=== PATIENT | female | born 1985 | race Caucasian/White ===

== ENCOUNTER 2017-09-28 16:22 | Emergency (ER) | payer OTHER ==
--- NOTE | 2017-09-28 16:30 | PDOC ---
Rapid Medical Evaluation Chief Complaint: Back Pain Time Seen by Provider: 09/28/17 16:27 Medical Evaluation: Allergies Allergy/AdvReac Type Severity Reaction Status Date / Time No Known Allergies Allergy Verified 09/28/17 16:26 09/28/17 16:27 I have performed a brief in-person evaluation of this patient. The patient presents with a chief complaint of: intermittent vaginal bleeding for 3 weeks with abdominal pain, and vaginal pain. Also reports nausea and dizziness. Denies dysuria, vomiting or diarrhea Pertinent physical exam findings: NAD even and unlabored non tender abdomen I have ordered the following: urine , urinalysis and labs The patient will proceed to the ED for further evaluation
[2017-09-28 16:31] VITALS: BP 129/91; PULSE 90; TEMP 97.9; BMI 38.3
[2017-09-28 17:05] LABS: HCG,QUALITATIVE URINE NEGATIVE
--- NOTE | 2017-09-28 17:05 | PDOC ---
History of Present Illness - General Chief Complaint: Back Pain Stated Complaint: BACK PAIN Time Seen by Provider: 09/28/17 16:27 - History of Present Illness Initial Comments: 09/28/17 17:00 CHIEF COMPLAINT: back pain, suprapubic pain, vaginal bleeding HISTORY OF PRESENT ILLNESS: 31 yo 4F with hx of irregular menstrual cycles presents to ED with low back and suprapubic pain x 2 weeks. Patient reports intermittent vaginal bleeding x 3 weeks and states that she has never had this kind of bleeding before, nor had this kind of pain. She reports the pain in her suprapubic area is a "pinching pain" and the pain in her back is worsened when she lies down. PAST MEDICAL HISTORY: Denies past medical history FAMILY HISTORY: Denies SOCIAL HISTORY: Denies tobacco, alcohol, illicit drug use. SURGICAL HISTORY: Denies ALLERGIES: No known drug allergies REVIEW OF SYSTEMS General/Constitutional: Denies fever or chills. Denies weakness, weight change. HEENT: Denies change in vision. Denies ear pain or discharge. Denies sore throat. Cardiovascular: Denies chest pain or shortness of breath. Respiratory: Denies cough, wheezing, or hemoptysis. Gastrointestinal: Nausea. Denies vomiting, diarrhea or constipation. Denies rectal bleeding. Genitourinary: Vaginal bleeding x 2 weeks. Denies dysuria, frequency, or change in urination. Musculoskeletal: Denies joint or muscle swelling or pain. Denies neck or back pain. Skin and breasts: Denies rash or easy bruising. Neurologic: Denies headache, vertigo, loss of consciousness, or loss of sensation. PHYSICAL EXAM General Appearance: Well-appearing, appropriately dressed. No apparent distress. HEENT: EOMI, PERRLA. No conjunctival pallor. No photophobia, scleral icterus. Respiratory/Chest: Lungs CTAB. Cardiovascular: RRR. S1, S2. Gastrointestinal/Abdominal: Normal bowel sounds. Abdomen soft, non-distended. No tenderness or rebound tenderness. No organomegaly, pulsatile mass, guarding , hernia, hepatomegaly, splenomegaly. Musculoskeletal/Extremities: Normal inspection. FROM of all extremities, normal capillary refill. Pelvis Stable. No CVA tenderness. No tenderness to extremities, pedal edema, swelling, erythema or deformity. Integumentary: Appropriate color, dry, warm. No cyanosis, erythema, jaundice or rash Neurologic: gastroenterologist II-XII intact. Fully oriented, alert. Appropriate mood/affect. Motor strength 5/5. No appreciable EOM palsy, facial droop or sensory deficit. Past History - Past Medical History Allergies/Adverse Reactions: Allergies Allergy/AdvReac Type Severity Reaction Status Date / Time No Known Allergies Allergy Verified 09/28/17 16:26 Home Medications: Ambulatory Orders Ibuprofen [Motrin -] 600 mg PO TID PRN #21 tablet 09/28/17 CVA: No COPD: No DVT: No - Suicide/Smoking/Psychosocial Hx Smoking History: Current every day smoker Number of Cigarettes Smoked Daily: 1 Information on smoking cessation initiated: No Hx Alcohol Use: No Drug/Substance Use Hx: No Substance Use Type: Alcohol *Physical Exam - Vital Signs Last Vital Signs Temp Pulse Resp BP Pulse Ox 97.9 F 90 16 129/91 100 09/28/17 16:26 09/28/17 16:26 09/28/17 16:26 09/28/17 16:26 09/28/17 16:26 ED Treatment Course - RADIOLOGY Radiology Studies Ordered: Category Date Time Status TRANSVAGINAL ULTRASOUND US [US] Stat Ultrasound 09/28/17 16:58 Ordered Medical Decision Making - Medical Decision Making 09/28/17 17:05 31 yo 4F with hx of irregular menstrual cycles presents to ED with low back and suprapubic pain x 2 weeks -Upreg, UA sent in E -TVUS eval for fibroids, irregular uterine bleeding 09/28/17 18:04 Ultrasound negative. *DC/Admit/Observation/Transfer Diagnosis at time of Disposition: Irregular menstrual bleeding - Discharge Dispostion Disposition: HOME Condition at time of disposition: Stable Decision to Admit order: No - Prescriptions Prescriptions: Ibuprofen [Motrin -] 600 mg PO TID PRN #21 tablet PRN Reason: Pain - Referrals Referrals: Darwin Gonzales MD [Staff Physician] - - Patient Instructions Printed Discharge Instructions: DI for Dysmenorrhea Additional Instructions: Please follow up with OBGYN within the next 1-2 weeks for further evaluation and management of your vaginal bleeding. If you develop significant bleeding ( more than one soaked pad an hour), lightheadedness, dizziness, palpitations, shortness of breath, or any new or worsening symptoms, please return to the ER. - Post Discharge Activity
[2017-09-28] MEDS ORDERED: KETOROLAC TROMETHAMINE 60 MG/2 ML VIAL IM ONE (17:31)
[2017-09-28] MEDS ORDERED: KETOROLAC TROMETHAMINE 60 MG/2 ML VIAL ONE (17:33)
[2017-09-28 17:50] LABS: URINE APPEARANCE CLEAR; URINE BILIRUBIN NEGATIVE (<2.0 mg/dL); URINE COLOR YELLOW; URINE GLUCOSE (UA) NEGATIVE (NEGATIVE); URINE KETONE NEGATIVE (NEGATIVE); URINE LEUK ESTERASE NEGATIVE (NEGATIVE); URINE NITRITE NEGATIVE (NEGATIVE); URINE PROTEIN NEGATIVE (NEGATIVE); URINE UROBILINOGEN NEGATIVE mg/dL (0.2-1.0)
[2017-09-28 17:54] LABS: EPI CELLS FEW /HPF (FEW); URINE BACTERIA RARE /hpf (NONE SEEN); URINE MUCUS MANY
== END 2017-09-28 18:11 | disposition home or self-care (01) ==
LOC: JER 16:22
PROC: 3E0233Z Introduction of Anti-inflammatory into Muscle, Percutaneous Approach (ICD-10-PCS; principal; 2017-09-28)
DX: N92.5 Other specified irregular menstruation (principal)
CPT/HCPCS: 76830-TC; 81003; 81015; 84703; 87086; 96372; 99281-25

== ENCOUNTER 2018-11-19 17:21 | Emergency (ER) | payer OTHER ==
[2018-11-19 17:28] VITALS: TEMP 98.5; BMI 38.7
--- NOTE | 2018-11-19 17:28 | PDOC ---
Rapid Medical Evaluation Chief Complaint: Vaginal Bleeding Time Seen by Provider: 11/19/18 17:25 Medical Evaluation: Allergies Allergy/AdvReac Type Severity Reaction Status Date / Time No Known Allergies Allergy Verified 11/19/18 17:25 11/19/18 17:26 Patient c/o: vag bleeding with lower abd cramping at 230pm , unknown gest age, lmp in august Patient on brief exam: vss, mid and rt suprapubic tenderness Patient ordered for: labs, urine, and u/s patient to proceed to the ED Discharge Disposition - Diagnosis Vagina bleeding - Referrals - Patient Instructions - Post Discharge Activity
[2018-11-19 18:00] LABS: BASO % 0.5 % (0-2.0); EOS % 0.6 % (0-4.5); HEMATOCRIT 39.3 % (32.4-45.2); HEMOGLOBIN 12.8 GM/dL (10.7-15.3); LYMPH % 23.9 % (8-40); MCH 26.5 pg (25.7-33.7); MCHC 32.6 g/dl (32.0-36.0); MEAN CELL VOLUME 81.1 fl (80-96); MEAN PLT VOLUME 7.4 fl (7.5-11.1); MONO % 8.1 % (3.8-10.2); NEUT % 66.9 % (42.8-82.8); PLATELET COUNT 330 K/MM3 (134-434); RBC 4.84 M/mm3 (3.60-5.2); RDW 13.8 % (11.6-15.6); WHITE BLOOD COUNT 14.5 K/mm3 (4.0-10.0)
[2018-11-19 18:03] LABS: EPI CELLS 28.3 /HPF (0-5/HPF); HYALINE CASTS 17 /lpf (0-8); PH,URINE 5.5 (5.0-8.0); URINE APPEARANCE CLOUDY; URINE BACTERIA 184.3 /hpf (NEGATIVE); URINE BILIRUBIN NEGATIVE (NEGATIVE); URINE COLOR YELLOW; URINE GLUCOSE (UA) NEGATIVE (NEGATIVE); URINE KETONE TRACE (NEGATIVE); URINE LEUK ESTERASE 1+ (NEGATIVE); URINE NITRITE NEGATIVE (NEGATIVE); URINE PROTEIN TRACE (NEGATIVE); URINE RBC 7 /hpf (0-4); URINE UROBILINOGEN 0.2 mg/dL (0.2-1.0); URINE WBC 11 /hpf (0-5)
[2018-11-19] MEDS ORDERED: ACETAMINOPHEN 325 MG TABLET (FP) PO ONE (18:18)
--- NOTE | 2018-11-19 18:28 | PDOC ---
History of Present Illness - General Chief Complaint: Vaginal Bleeding Stated Complaint: VAGINAL BLEEDING/LOWER AB/PAIN Time Seen by Provider: 11/19/18 17:25 History Source: Patient Exam Limitations: No Limitations Past History - Past Medical History Allergies/Adverse Reactions: Allergies Allergy/AdvReac Type Severity Reaction Status Date / Time No Known Allergies Allergy Verified 11/19/18 17:25 Home Medications: Ambulatory Orders Ibuprofen [Motrin -] 600 mg PO TID PRN #21 tablet 09/28/17 CVA: No COPD: No DVT: No - Suicide/Smoking/Psychosocial Hx Smoking History: Never smoked Number of Cigarettes Smoked Daily: 1 Hx Alcohol Use: No Drug/Substance Use Hx: No Substance Use Type: Alcohol *Physical Exam - Vital Signs Last Vital Signs Temp Pulse Resp BP Pulse Ox 98.5 F 95 H 16 136/70 99 11/19/18 17:21 11/19/18 17:21 11/19/18 17:21 11/19/18 17:21 11/19/18 17:21 - Physical Exam General Appearance: No: Apparent Distress Respiratory/Chest: positive: Lungs Clear, Normal Breath Sounds. negative: Respiratory Distress Cardiovascular: positive: Regular Rhythm, Regular Rate, S1, S2. negative: Murmur Female Pelvic Exam: positive: other (cervical os closed). negative: discharge, adnexal tenderness, vaginal bleeding Gastrointestinal/Abdominal: positive: Tender (mild along RLQ), Soft. negative: Distended, Guarding, Rebound Neurologic: positive: Alert, Normal Mood/Affect ED Treatment Course - LABORATORY CBC & Chemistry Diagram: 11/19/18 17:48 11/19/18 17:48 - ADDITIONAL ORDERS Additional order review: Laboratory Results 11/19/18 17:48 Urine Color Yellow Urine Appearance Cloudy Urine pH 5.5 Ur Specific [place] 1.032 Urine Protein Trace Urine Glucose (UA) Negative Urine Ketones Trace H Urine Blood 3+ H Urine Nitrite Negative Urine Bilirubin Negative Urine Urobilinogen 0.2 Ur Leukocyte Esterase 1+ H Urine WBC (Auto) 11 Urine RBC (Auto) 7 Urine Casts (Auto) 17 U Epithel Cells (Auto) 28.3 Urine Bacteria (Auto) 184.3 11/19/18 17:48 RBC 4.84 MCV 81.1 MCHC 32.6 RDW 13.8 MPV 7.4 L Neutrophils % 66.9 Lymphocytes % 23.9 Monocytes % 8.1 Eosinophils % 0.6 Basophils % 0.5 Medical Decision Making - Medical Decision Making 32 y/o F , LNMP August (unsure of exact date), hx of PCOS, has irregular menstrual cycles, found out she was via home test 2 weeks ago , which was later confirmed at [facility], presents with vaginal bleeding from today. 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 Also with lower abdominal cramping/LBP from yesterday. Denies fever, sob, cp, n/v/d, dysuria. Denies prior abdominal surgeries R/O ectopic; possible spontaneous ; also r/o appendicitis given RLQ pain Plan: Labs, Tylenol, pelvic US, transvaginal US 11/19/18 18:27 Urine repeated as appeared contaminated Repeat urine negative Pelvic US - unable to visualize appendix However, on repeat exam, patient appears comfortable with no further RLQ tenderness noted; unlikely appendicitis TVUS shows IUP at 5 weeks 6 days, no heart tone noted D/W FIELD EVIDENCE TECHNICIAN, Dr. Mendoza - recommends patient f/u with him in 2 weeks for repeat US stable for dc 11/19/18 20:52 *DC/Admit/Observation/Transfer Diagnosis at time of Disposition: Vaginal bleeding during - Discharge Dispostion Disposition: HOME Condition at time of disposition: Stable Decision to Admit order: No - Referrals Referrals: Darwin Gonzales MD [Staff Physician] - 14 days - Patient Instructions Printed Discharge Instructions: DI for Vaginal Bleeding During Additional Instructions: Thank you for choosing [facility]. It was a pleasure taking care of you. Your ultrasound shows evidence of within uterus. However, there is heart beat noted Please follow-up for repeat pelvic US in 2 weeks with FIELD EVIDENCE TECHNICIAN, Dr. Gonzales Return to the Emergency Department if your symptoms worsen or persist, you have fever, severe abdominal pain, heavy vaginal bleeding or other concerning symptoms. - Post Discharge Activity
[2018-11-19 18:32] LABS: ALBUMIN 3.6 g/dl (3.4-5.0); BILIRUBIN,TOTAL 0.2 mg/dL (0.2-1); CALCIUM 8.4 mg/dL (8.5-10.1); POTASSIUM 3.8 mmol/L (3.5-5.1); TOT PROT 6.8 g/dl (6.4-8.2)
[2018-11-19] MEDS ORDERED: ACETAMINOPHEN 325 MG TABLET (FP) ONE (18:43)
[2018-11-19 20:00] VITALS: BP 116/82; PULSE 75
[2018-11-19 20:22] LABS: HYALINE CASTS 14 /lpf (0-8); PH,URINE 5.5 (5.0-8.0); URINE APPEARANCE CLEAR; URINE BACTERIA 186.1 /hpf (NEGATIVE); URINE BILIRUBIN NEGATIVE (NEGATIVE); URINE COLOR YELLOW; URINE GLUCOSE (UA) NEGATIVE (NEGATIVE); URINE KETONE TRACE (NEGATIVE); URINE LEUK ESTERASE TRACE (NEGATIVE); URINE NITRITE NEGATIVE (NEGATIVE); URINE PROTEIN NEGATIVE (NEGATIVE); URINE RBC 4 /hpf (0-4); URINE UROBILINOGEN 0.2 mg/dL (0.2-1.0); URINE WBC 5 /hpf (0-5)
== END 2018-11-19 21:00 | disposition home or self-care (01) ==
LOC: JER 17:21
DX: O26.891 Other specified pregnancy related conditions, first trimester (principal); Z3A.00 Weeks of gestation of pregnancy not specified; N93.9 Abnormal uterine and vaginal bleeding, unspecified
CPT/HCPCS: 36415; 76801-TC; 76856-TC; 80053; 81003; 84702; 85025; 86850; 86900; 86901; 87086; 99283-25